=== PATIENT | female | born 1955 | race African-American/Black ===

== ENCOUNTER 2016-12-10 12:44 | Emergency (ER) | payer SELFPAY ==
[~2016-12-10] VITALS: Ht 162.6 cm; Wt 58.7 kg
[2016-12-10 13:21] VITALS: BP 180/116
[2016-12-10] MEDS ORDERED: KETOROLAC TROMETH 60MG/2ML VIAL IM ONE (13:30)
[2016-12-10] MEDS ORDERED: cloNIDine HCL 0.1 MG TAB PO ONE (13:30)
[2016-12-10] MEDS ORDERED: LORazepam 2MG/ML-1ML VIAL IM ONE (13:30)
== END 2016-12-10 15:07 | disposition home or self-care (01) ==
LOC: ER 12:49
DX: I10 Essential (primary) hypertension (principal); F41.9 Anxiety disorder, unspecified; M79.604 Pain in right leg; M79.605 Pain in left leg
CPT/HCPCS: 96372; 99284; J1885; J2060

== ENCOUNTER 2018-07-26 16:10 | Inpatient (IN) | payer BC, OTHER ==
[~2018-07-26] VITALS: Ht 162.6 cm; Wt 70.4 kg
[2018-07-26] MEDS ORDERED: ONDANSETRON HCL 4 MG/2 ML VIAL IV ONE (17:30)
[2018-07-26] MEDS ORDERED: cloNIDine HCL 0.1 MG TAB PO ONE (17:30)
[2018-07-26] MEDS ORDERED: MORPHINE SULFATE 4 MG/ML SYR/VIAL IV ONE (17:30)
[2018-07-26 17:33] LABS: Eosinophils # (auto) 0.5 uL; Eosinophils % (auto) 5.5 % (0.0-7.0); Nucleated Red Blood Cells % 0.1 %
[2018-07-26 17:35] LABS: Basophils # (auto) 0 uL; Basophils % (auto) 0.3 % (0.0-2.0); Hematocrit 37.3 % (36.0-46.0); Lymphocytes # (auto) 4.5 uL; Mean Corpuscular Hemoglobin 26.2 pg (28.0-32.0); Mean Corpuscular Hgb Conc. 32.2 g/dL (32.0-36.0); Mean Corpuscular Volume 81.3 fL (80.0-100.0); Monocytes # (auto) 0.5 uL; Monocytes % (auto) 5.7 % (0.0-12.0); Neutrophils # (auto) 2.9 uL; Neutrophils % (auto) 34.5 % (37.0-80.0); Platelet Count (auto) 264 10^3/uL (140-450); Red Blood Cells 4.59 10^6/uL (4.0-5.20); Red Cell Distribution Width 15.6 % (11.8-14.3); White Blood Cell 8.4 10^3/uL (4.4-10.8)
[2018-07-26 17:43] LABS: Albumin 3.6 g/dL (3.4-5.0); Calcium 8.6 mg/dL (8.5-10.1); Potassium 3.6 mmol/L (3.5-5.1)
[2018-07-26 17:45] LABS: Bilirubin, Total 0.2 mg/dL (0.2-1.0); Total Protein 7.3 g/dL (6.4-8.2)
[2018-07-26 17:47] LABS: Partial Thromboplastin Time 29.1 sec (23.78-33.04); Prothrombin Time 10.7 sec (9.27-12.13)
[2018-07-26] MEDS ORDERED: LORazepam 0.5 MG TAB PO PRN (18:00)
[2018-07-26] MEDS ORDERED: PROMETHAZINE HCL 25 MG/ML 1ML IV PRN (18:00)
[2018-07-26] MEDS ORDERED: ACETAMINOPHEN 500 MG TAB PO PRN (18:00)
[2018-07-26] MEDS: PANTOPRAZOLE 40 MG TAB PO SCH (19:04)
[2018-07-26] MEDS: SODIUM CHLORIDE 0.9% 1,000 ML IV SCH (19:04)
[2018-07-26 20:15] VITALS: BP 159/98
--- NOTE | 2018-07-26 20:15 | NUR ---
MS admit from ER NAZANIN ELY admitted to tele/MS after SBAR received. Patient oriented to Adam recinos RN, unit, room, bed, and unit policies regarding patient care and visiting hours. Patient weighed by bedscale and encouraged to call if they need something. All questions and concerns addressed, patient verbalized understanding.
[2018-07-26 20:30] VITALS: BP 122/86
--- NOTE | 2018-07-26 21:10 | NUR ---
RECEIVED TELEPHONE ORDERS FROM
[2018-07-26] MEDS: MORPHINE SULFATE 4 MG/ML SYR/VIAL IV PRN (21:56)
[2018-07-26] MEDS: HYDROcodone-ACET 5/325MG TAB PO PRN (22:51)
[2018-07-26 23:15] LABS: INR 0.99 (0.9-1.15); Partial Thromboplastin Time 29.2 sec (23.78-33.04); Prothrombin Time 10.6 sec (9.27-12.13)
[2018-07-27] MEDS: TEMAZEPAM 15 MG CAP PO PRN ×2 (01:25→22:38)
[2018-07-27] MEDS: MORPHINE SULFATE 4 MG/ML SYR/VIAL IV PRN ×4 (01:59→21:40)
[2018-07-27] MEDS ORDERED: BENA20TA14 PO (02:54)
[2018-07-27] MEDS: SODIUM CHLORIDE 0.9% 1,000 ML IV SCH (03:56)
[2018-07-27 05:00] VITALS: BP 126/78
[2018-07-27 05:33] LABS: Urine Bacteria FEW /hpf (None Seen); Urine Blood Negative /uL (Negative); Urine Specific Gravity 1.017 (1.001-1.035); Urine WBC 1 /hpf (0 - 5)
--- NOTE | 2018-07-27 07:00 | NUR ---
Consent not signed yet Per patient Dr Bal didn't speak with patient.
[2018-07-27 07:38] VITALS: BP 114/70
[2018-07-27] MEDS ORDERED: BUPIVACAINE 0.75% INJ 10ML MPV SDV IJ ONE (08:43)
[2018-07-27] MEDS ORDERED: ceFAZolin 1GM/50ML 50 ML IV ONE (08:44)
[2018-07-27] MEDS ORDERED: MEPERIDINE HCL (50 MG/ML) 1 ML VIAL ONE (08:57)
[2018-07-27] MEDS ORDERED: fentaNYL CITRATE 100 MCG/2 ML VL ONE (08:57)
[2018-07-27] MEDS ORDERED: MIDAZOLAM HCL 1MG/1ML-2 ML VIAL ONE (08:57)
[2018-07-27] MEDS ORDERED: ETOMIDATE (2MG/ML) 20ML VIAL IV ONE (09:28)
[2018-07-27] MEDS ORDERED: DEXAMETHASONE SOD PHOS 10MG/1ML VIAL INJ ONE (09:28)
[2018-07-27] MEDS ORDERED: KETOROLAC TROMETH 30 MG/ML 1ML VIAL IV ONE (10:00)
[2018-07-27] MEDS ORDERED: LABETALOL HCL 5 MG/ML 4ML SYRINGE IV PRN (10:00)
[2018-07-27] MEDS ORDERED: ONDANSETRON HCL 4 MG/2 ML VIAL IV ONE (10:00)
[2018-07-27] MEDS ORDERED: MIDAZOLAM HCL 1MG/1ML-2 ML VIAL IV PRN (10:00)
[2018-07-27] MEDS ORDERED: MORPHINE SULFATE 4 MG/ML SYR/VIAL IV ONE (10:00)
[2018-07-27] MEDS ORDERED: ePHEDrine SULFATE 50 MG/ML AMP IV PRN (10:00)
[2018-07-27] MEDS ORDERED: MORPHINE SULFATE 4 MG/ML SYR/VIAL IV PRN (10:00)
[2018-07-27] MEDS ORDERED: HYDROmorphone HCL 2 MG/ML VL IV PRN (10:00)
--- NOTE | 2018-07-27 12:25 | NUR ---
Patient returned to unit from PACU. Patient is awake but drowsy. Call light placed within reach, daughter and spouse at bedside. Bed alarm on for safety.
[2018-07-27] MEDS ORDERED: SODIUM CHLORIDE 0.9% 1,000 ML IV SCH (13:15)
[2018-07-27] MEDS: PANTOPRAZOLE 40 MG TAB PO SCH (14:34)
[2018-07-27 16:50] VITALS: BP 135/68
[2018-07-27 22:00] VITALS: BP 164/89
[2018-07-28] MEDS: HYDROcodone-ACET 5/325MG TAB PO PRN (00:36)
[2018-07-28] MEDS: MORPHINE SULFATE 4 MG/ML SYR/VIAL IV PRN ×4 (03:02→18:35)
[2018-07-28 05:00] VITALS: BP 150/99
[2018-07-28 09:22] VITALS: BP 162/99
[2018-07-28] MEDS: PANTOPRAZOLE 40 MG TAB PO SCH (09:43)
[2018-07-28] MEDS ORDERED: BENAZEPRIL HCL 10 MG TAB PO SCH (10:00)
[2018-07-28] MEDS ORDERED: hydrALAZINE HCL 20 MG/ML VL IV PRN (13:30)
[2018-07-28 13:49] VITALS: BP 163/98
--- NOTE | 2018-07-28 14:15 | NUR ---
SS CONSULT W/C: SPOKE TO MORENO AT [facility] AND SHE WILL CHECK FINANCIALS OF PT AND GET BACK TO ME. IF FINANCIALS CHECK OUT, THEN PT COULD GET W/C IN 3 HRS (APPROX)
--- NOTE | 2018-07-28 15:30 | NUR ---
W/C: PER HORTENCIA AT [facility], W/C SHOULD BE DELIVERED TO BEDSIDE IN THE NEXT HR
--- NOTE | 2018-07-28 15:31 | NUR ---
SILVINO'S PH # [phone]
[2018-07-28 17:00] VITALS: BP 167/106
[2018-07-28 17:41] VITALS: BP 145/91
--- NOTE | 2018-07-28 18:00 | NUR ---
Patient has wheelchair delivered at bedside. Blood pressure elevated 161/106. Hydralazine 20mg given. Will recheck blood pressure.
--- NOTE | 2018-07-28 18:15 | NUR ---
Blood pressure rechecked. 145/91. Temperature 99. Hospitalist paged.
--- NOTE | 2018-07-28 18:20 | NUR ---
Elevated temperature As per hospitalist, discharge patient. She can take tylenol at home for temperature and follow up with PCP. If condition does not improve or gets worst, she can return to the emergency room.
--- NOTE | 2018-07-28 18:31 | NUR ---
Patient awaiting transport to take her home. She is severe pain. Pain medication administered. Family members will sign discharge papers.
--- NOTE | 2018-07-28 22:00 | NUR ---
DISCHARGE NOTE Patient is A&O X's 4 with no s/s of distress noted. Patient's is at bedside and will be transporting patient home. Patient and were given discharge instructions, information about follow up appointment with PCP and surgeon in one week. Educated patient that no weight bearing allowed on right foot. Wheelchair to take home is at bedside. Patient verbalized understanding. All questions were answered during this time. Prescription and discharge papers were given to . IV to left AC 18G was removed with catheter fully intact and gauze applied. Wrist band was removed at this time. Patient went down to vehicle in wheelchair. No distress noted. VS : Temp 98.5 HR 100 RR 20 O2 94 on room air BP 135/93.
== END 2018-07-28 23:00 | disposition home or self-care (01) | DRG 494 ==
LOC: EDBD 16:10 → ER 16:12 → OVERFLOW 17:58 → EAST 20:13
PROVIDERS: ADMIT Internal Medicine; ATTEND Internal Medicine
PROC: 0QSJXZZ Reposition Right Fibula, External Approach (ICD-10-PCS; 2018-07-26)
PROC: 0QSGXZZ Reposition Right Tibia, External Approach (ICD-10-PCS; 2018-07-26)
PROC: 0QSG04Z Reposition Right Tibia with Internal Fixation Device, Open Approach (ICD-10-PCS; 2018-07-27)
PROC: 0YU Anatomical Regions, Lower Extremities, Supplement (ICD-10-PCS; 2018-07-27)
PROC: 0QSJ04Z Reposition Right Fibula with Internal Fixation Device, Open Approach (ICD-10-PCS; principal; 2018-07-27 09:06)
DX: S82.851A Displaced trimalleolar fracture of right lower leg, initial encounter for closed fracture (principal); F17.210 Nicotine dependence, cigarettes, uncomplicated; F32.9 Major depressive disorder, single episode, unspecified; F41.9 Anxiety disorder, unspecified; I10 Essential (primary) hypertension; W01.0XXA Fall on same level from slipping, tripping and stumbling without subsequent striking against object, initial encounter; Y93.89 Activity, other specified; Y92.89 Other specified places as the place of occurrence of the external cause; Y99.8 Other external cause status; Z80.3 Family history of malignant neoplasm of breast; Z82.49 Family history of ischemic heart disease and other diseases of the circulatory system; Z83.3 Family history of diabetes mellitus; Z90.710 Acquired absence of both cervix and uterus
CPT/HCPCS: 27818; 36415; 71045; 73610; 80053; 81001; 85025; 85610; 85730; 94761; 96374; 96375; G0378; J0690; J1100; J2250; J2405; J3490

== ENCOUNTER 2020-05-11 09:09 | Emergency (ER) | payer BC ==
[~2020-05-11] VITALS: Ht 162.6 cm; Wt 56.7 kg
[~2020-05-11 09:09] MED LIST: BENA20TA14 PO
[2020-05-11 09:54] VITALS: BP 158/101
[2020-05-11] MEDS ORDERED: FLUORESCEIN SOD 1 MG TEST STRIP OP ONE (10:30)
[2020-05-11] MEDS ORDERED: TETRACAINE HCL 0.5% OPTH(EYE) SOLN 4ML EACHEYE ONE (10:30)
== END 2020-05-11 11:00 | disposition home or self-care (01) ==
LOC: ER 09:09
DX: S05.01XA Injury of conjunctiva and corneal abrasion without foreign body, right eye, initial encounter (principal); H10.33 Unspecified acute conjunctivitis, bilateral; I10 Essential (primary) hypertension; X58.XXXA Exposure to other specified factors, initial encounter; Y93.89 Activity, other specified; Y92.89 Other specified places as the place of occurrence of the external cause; Y99.8 Other external cause status